=== PATIENT | female | born 1985 | race Two or more races ===

== ENCOUNTER 2019-10-11 00:16 | Emergency (ER) | payer OTHER ==
[~2019-10-11] VITALS: Ht 162.6 cm; Wt 68.0 kg
[2019-10-11 00:51] VITALS: BP 132/93
[2019-10-11] MEDS ORDERED: ACETAMINOPHEN 325 MG TAB PO ONE ×2 (01:45)
[2019-10-11] MEDS ORDERED: methylPREDNISolone SOD SUCC 125 MG/2 ML VL IM ONE (01:45)
[2019-10-11] MEDS ORDERED: predniSONE 20 MG TAB PO ONE (01:45)
[2019-10-11] MEDS ORDERED: KETOROLAC TROMETH 60MG/2ML VIAL IM ONE (01:45)
[2019-10-11] MEDS ORDERED: NAPROXEN 500 MG TAB PO ONE (01:45)
== END 2019-10-11 02:27 | disposition home or self-care (01) ==
LOC: ER 00:22
DX: S62.525A Nondisplaced fracture of distal phalanx of left thumb, initial encounter for closed fracture (principal); W22.8XXA Striking against or struck by other objects, initial encounter; Y93.89 Activity, other specified; Y99.0 Civilian activity done for income or pay; Y92.69 Other specified industrial and construction area as the place of occurrence of the external cause
CPT/HCPCS: 73130; 99283; J7512